=== PATIENT | female | born 2000 | race Caucasian/White ===

== ENCOUNTER 2022-08-11 08:20 | Emergency (ER) | payer OTHER ==
[~2022-08-11] VITALS: Ht 167.6 cm; Wt 81.6 kg
[2022-08-11 08:23] VITALS: BP 130/87
--- NOTE | 2022-08-11 08:26 | NUR ---
BIBA FROM HOME C/O NAUSEA AND VOMITING ONSET LAST NIGHT. PT ALSO C/O FEVER OF 101/4 LAST NIGHT. URINE COLLECTED. DENIES ANY PAIN. AFEBRILE AT BEDSIDE. AMBULATORY, VITALS STABLE. PMH: NONE MED: PROZAC AND CONTROL NKA
[2022-08-11] MEDS ORDERED: KETOROLAC 15 MG/ML VIAL IVP ONE (08:35)
[2022-08-11] MEDS ORDERED: NACL 0.9% 1,000 ML IV ONE (08:35)
[2022-08-11] MEDS ORDERED: ONDANSETRON 4 MG/2 ML VIAL IVP ONE (08:35)
--- NOTE | 2022-08-11 08:45 | NUR ---
BLOOD DRAWN BY [employer]
--- NOTE | 2022-08-11 09:25 | NUR ---
PT TOLERATED PO CHALLENGE. DENIES NAUSEA OR VOMITING AT THIS TIME
[2022-08-11 10:26] LABS: CARBON DIOXIDE 22.1 mmol/L (21-32); CREATININE 0.8 mg/dL (0.6-1.3)
[2022-08-11 11:14] LABS: ANION GAP 15.3 (8-16); POTASSIUM 3.4 mmol/L (3.5-5.1)
[2022-08-11] MEDS ORDERED: ONDA-188 PO (11:31)
[2022-08-11 11:40] VITALS: BP 125/75
== END 2022-08-11 11:40 | disposition home or self-care (01) ==
LOC: MED 08:20
DX: K52.9 Noninfective gastroenteritis and colitis, unspecified (principal); Z20.822 Contact with and (suspected) exposure to COVID-19; R11.2 Nausea with vomiting, unspecified; Z79.899 Other long term (current) drug therapy
CPT/HCPCS: 36415; 80048; 81002; 81025; 87426; 87804; 96374; 96375; 99284; J1885; J2405; J7030